=== PATIENT | male | born 1965 | race Caucasian/White ===

== ENCOUNTER 2021-08-18 06:12 | Emergency (ER) | payer SELFPAY ==
[~2021-08-18] VITALS: Ht 167.6 cm; Wt 73.0 kg
[2021-08-18 06:31] LABS: HEMOGLOBIN 13.6 g/dl (14.0-18.0); IMMATURE GRANULOCYTES 0.2 % (0.0-5.0); MEAN CELL VOLUME 85.7 fL CALC (80.0-100.0); MEAN CORPUSCULAR HGB 27.1 pG CALC (26.0-32.0); MEAN CORPUSCULAR HGB CONC 31.6 g/dL CAL (32.0-36.0); NEUT# 6.32 thou/uL (1.82-7.42); RED BLOOD COUNT 5.02 mill/uL (4.70-6.10); RED CELL DISTRI WIDTH 15.2 % (11.5-15.5)
[2021-08-18 06:50] LABS: ACT PARTIAL THROMBO TIME 23.6 SECONDS (20.0-32.5); INTERNATIONAL NORMALIZED RATIO 1.4 RATIO (0.7-1.3); PROTHROMBIN TIME 14.8 SECONDS (9.0-12.5)
[2021-08-18 07:06] LABS: GFR > 60 ML/MIN (>=60 (CALC)); GFR FOR AFR.AMER. > 60 ML/MIN (>=60 (CALC))
[2021-08-18 07:27] LABS: ALBUMIN 2.7 g/dL (3.2-5.0); ALKALINE PHOSPHATASE 149 u/l (38-126); ANION GAP 10 (6-22 (CALC)); BILIRUBIN, TOTAL 0.7 mg/dL (0.0-1.4); BUN 29 mg/dL (9-20); BUN/CREATININE RATIO 32 (12-20 (CALC)); CARBON DIOXIDE 25 mmol/l (22-30); CHLORIDE 100 mmol/l (95-108); CPK 160 u/l (52-200); CREATININE 0.9 mg/dL (0.7-1.3); ETHYL ALCOHOL 0 mg/dl (0-30); GFR > 60 ML/MIN (>=60 (CALC)); GFR FOR AFR.AMER. > 60 ML/MIN (>=60 (CALC)); POTASSIUM 3.8 mmol/l (3.5-5.1); SGOT/AST 67 u/l (17-59); SODIUM 131 mmol/l (137-146)
[2021-08-18 07:41] LABS: MYOGLOBIN 389 ng/mL (0 - 121)
[2021-08-18] MEDS ORDERED: TRELEGY ELLIPTA1 AER PO (07:46)
[2021-08-18] MEDS ORDERED: METFORMIN500 M2 PO (07:46)
[2021-08-18] MEDS ORDERED: METHOCARBAMOL500 MG PO ×2 (07:47→08:14)
[2021-08-18] MEDS ORDERED: LANTUS100 UNIT SC (07:48)
[2021-08-18] MEDS ORDERED: ALBUTEROL108 MCG/AC PO (07:49)
[2021-08-18] MEDS ORDERED: BL ASPIRIN325 MG PO (07:50)
[2021-08-18 07:58] LABS: URINE BILIRUBIN - DIPSTICK NEGATIVE (NEGATIVE); URINE BLOOD DIPSTICK TRACE-INTACT (NEGATIVE); URINE COLOR YELLOW; URINE GLUCOSE - DIPSTICK 100 mg/dL (NEGATIVE); URINE KETONE NEGATIVE (NEGATIVE); URINE LEUK ESTERASE NEGATIVE (NEGATIVE); URINE NITRITE - DIPSTICK NEGATIVE (Negative); URINE PH 5.5 (4.5-8.0); URINE PROTEIN - DIPSTICK >=300 mg/dL (NEG-TRACE); URINE SPECIFIC GRAVITY >=1.030
[2021-08-18 08:07] LABS: URINE AMORPH SEDIMENT MANY hpf (NONE-FER)
[2021-08-18 08:08] LABS: URINE RBC 0-2 RBC/hpf (0-5); URINE WBC 0-2 WBC/hpf (0-5)
[2021-08-18] MEDS ORDERED: MOTRIN800 MG PO (08:14)
[2021-08-18] MEDS ORDERED: LANTUS SOL100 UNIT/M SC (08:15)
[2021-08-18] MEDS ORDERED: SIMVASTATIN40 MG PO (08:16)
[2021-08-18] MEDS ORDERED: LORADAMED10 MG PO (08:16)
[2021-08-18 11:37] VITALS: BP 142/95
== END 2021-08-18 11:39 | disposition short-term general hospital (02) | DRG 639 ==
LOC: ED 06:12
PROVIDERS: Family Medicine
DX: E11.649 Type 2 diabetes mellitus with hypoglycemia without coma (principal); R94.31 Abnormal electrocardiogram [ECG] [EKG]; I25.10 Atherosclerotic heart disease of native coronary artery without angina pectoris; F15.10 Other stimulant abuse, uncomplicated; I10 Essential (primary) hypertension; J44.9 Chronic obstructive pulmonary disease, unspecified; I25.2 Old myocardial infarction; Z86.73 Personal history of transient ischemic attack (TIA), and cerebral infarction without residual deficits; Z79.84 Long term (current) use of oral hypoglycemic drugs; Z79.4 Long term (current) use of insulin; Z20.822 Contact with and (suspected) exposure to COVID-19

== ENCOUNTER 2022-10-19 09:33 | Emergency (ER) | payer OTHER ==
[~2022-10-19] VITALS: Ht 167.6 cm; Wt 65.0 kg
[~2022-10-19 09:33] MED LIST: ALBUTEROL108 MCG/AC PO; BL ASPIRIN325 MG PO; LANTUS SOL100 UNIT/M SC; LANTUS100 UNIT SC; LORADAMED10 MG PO; METFORMIN500 M2 PO; METHOCARBAMOL500 MG PO; MOTRIN800 MG PO; SIMVASTATIN40 MG PO; TRELEGY ELLIPTA1 AER PO
[2022-10-19 09:41] VITALS: BP 144/119
[2022-10-19 10:00] VITALS: BP 132/98
[2022-10-19 11:00] VITALS: BP 135/92
[2022-10-19 12:00] VITALS: BP 138/95
[2022-10-19] MEDS ORDERED: ZPAK PO (12:44)
[2022-10-19 12:51] VITALS: BP 138/95
== END 2022-10-19 13:03 | disposition home or self-care (01) | DRG 203 ==
LOC: ED 09:33
DX: J40 Bronchitis, not specified as acute or chronic (principal); R23.3 Spontaneous ecchymoses; R60.9 Edema, unspecified; E11.9 Type 2 diabetes mellitus without complications; Z79.84 Long term (current) use of oral hypoglycemic drugs; I11.0 Hypertensive heart disease with heart failure; I50.9 Heart failure, unspecified; Z20.822 Contact with and (suspected) exposure to COVID-19